=== PATIENT | female | born 1960 | race Two or more races ===

== ENCOUNTER 2020-11-03 11:58 | Outpatient (REF) | payer OTHER, SELFPAY | END 2020-11-03 11:59 | disposition home or self-care (01) | LOC: HO.LAB 11:58 | PROVIDERS: Visit Provider Internal Medicine | DX: Z20.828 Contact with and (suspected) exposure to other viral communicable diseases (principal) | CPT/HCPCS: C9803; U0003 ==

== ENCOUNTER 2020-12-22 13:42 | Outpatient (REF) | payer OTHER, SELFPAY ==
--- NOTE | 2020-12-22 | MM_ITS ---
EXAMINATION: MM SCREENING DIGITAL BREAST TOMOSYNTHESIS, BILATERAL CLINICAL INFORMATION: Screening. Asymptomatic. Prior history reduction mammoplasty 2000. The lifetime risk of breast cancer based on the Tyrer-Cuzick Model is 8%. COMPARISON: Mammography: 08/04/2019, 08/01/2018, 07/22/2017 TECHNIQUE: Digital breast tomosynthesis is performed in both the craniocaudal and mediolateral oblique views along with computer-aided detection (CAD). Synthesized 2D images are generated from the tomosynthesis. FINDINGS: The breasts are almost entirely fatty (ACR BI-RADS breast composition Category a). There are no significant masses, abnormal calcifications, or other abnormalities. There is minor scarring and scattered benign punctate round and some rim calcifications again seen similar in distribution to prior studies and consistent with the reduction mammoplasty. No significant changes. MM/MM tomosynthesis screening BI IMPRESSION: No mammographic evidence of malignancy. ASSESSMENT: BI-RADS 2: Benign RECOMMENDATION: Routine annual mammography screening. This patient's information was entered into a reminder system with a target due date for their next mammogram.
== END 2020-12-22 13:43 | disposition home or self-care (01) ==
LOC: HO.MAMMO 13:42
PROVIDERS: Visit Provider Nurse Practitioner Family
DX: Z12.31 Encounter for screening mammogram for malignant neoplasm of breast (principal)
CPT/HCPCS: 77063; 77067

== ENCOUNTER 2021-12-08 10:40 | Day surgery (SDC) | payer OTHER, SELFPAY ==
[2021-11-30 11:03] VITALS: BMI 29.2
[2021-12-08 11:13] VITALS: BP 145/85; PULSE 94; RESP 16; TEMP 36; O2SAT 95
--- NOTE | 2021-12-08 11:50 | HO.ANESPROP2 ---
[facility] Past Medical History Medical History COVID-19 vaccine series completed Elevated cholesterol GERD (gastroesophageal reflux disease) Hypothyroid Pre-diabetes Renal calculi Functional capacity: independent ambulation Patient : No Family History Family history of problems with anesthesia: No Surgical History Surgical History H/O colonoscopy History of reduction mammoplasty Hx of lithotripsy History of Problems with Anesthesia: No Social History Social History Patient Tobacco Use Status: Never used Tobacco Use of substances other than those prescribed or required for medical reasons: No Have you been hit, kicked, punched, or otherwise hurt by someone within the past year? If so, by whom?: No Are you DNR?: No Advance Directives: No Advance Directives Information Provided: Yes (informational brochure mailed) Advance Directives on File: No Recently lost weight without trying: No Eating poorly because of decreased appetite: No Nutrition Risks: No Nutritional Risk Meds Allergies Allergy/AdvReac Type Severity Reaction Status Date / Time seafood Allergy Severe Anaphylaxis Verified 11/30/21 10:52 Home Medications Medication Instructions Recorded Confirmed Last Taken Type atorvastatin 40 mg tablet 40 mg PO BEDTIME 11/30/21 11/30/21 Unknown History cholecalciferol (vitamin D3) 25 25 mcg PO DAILY 11/30/21 11/30/21 Unknown History mcg (1,000 unit) capsule (Vitamin D3) famotidine 20 mg tablet 20 mg PO BEDTIME 11/30/21 11/30/21 Unknown History fluticasone propionate 50 1 spray INTRANASAL DAILY 11/30/21 11/30/21 Unknown History mcg/actuation nasal spray,suspension levothyroxine 75 mcg tablet 75 mcg PO DAILY 11/30/21 11/30/21 Unknown History loratadine 10 mg tablet 10 mg PO DAILY 11/30/21 11/30/21 Unknown History trazodone 50 mg tablet 50 mg PO BEDTIME 11/30/21 11/30/21 Unknown History Exam Exam Date and Time: December 08, 2021 1150 Height,Weight and Vital Signs: Height 4 ft 10 in Weight 63.503 kg Last Vital Signs Temp 96.8 F 12/08/21 11:13 Pulse 94 12/08/21 11:13 Resp 16 12/08/21 11:13 BP 145/85 H 12/08/21 11:13 Pulse Ox 95 12/08/21 11:13 Airway Mallampati Class: II TM Dist: >3cm Heart: RRR Lungs: CTA Assessment and Plan Final Anesthetic Review Family History of Problems with Anesthesia: No History of Problems with Anesthesia: No ASA Class: II Final Preanesthetic Review: No Changes in Pt Med Stat, Meds/Allgs Chart Reviewed, Consent Obtained/Reviewed and Anes Risks/Benef Reviewed Patient Risk: Low Procedure Risk: Low Anesthetic Plan Anesthetic Plan: MAC: Disposition: Standard PACU
--- NOTE | 2021-12-08 12:10 | MHC.SHP ---
Pre-Procedural Eval Section A Date of Service: 12/08/21 The patient is an INPATIENT: No Changes since office visit: No Cold of Flu in the past 2 weeks, No New Medical Problems, No Changes in Medication and No Patient answered all questions The History & Physical has been completed within 30 days and I have reviewed it.: Yes Section B Chief Complaint: screening Allergies: Allergies Allergy/AdvReac Type Severity Reaction Status Date / Time seafood Allergy Severe Anaphylaxis Verified 11/30/21 10:52 Plan I have reviewed the history and physical and performed a pertinent physical examination on my patient. No changes have occurred unless specified.
[2021-12-08] MEDS: Lactated Ringers 500 ML 20 ML IVCONT (12:27)
[2021-12-08 13:08] VITALS: BP 93/55; PULSE 94; RESP 16; TEMP 36.3; O2SAT 97
[2021-12-08 13:24] VITALS: BP 104/74; PULSE 89; RESP 16; O2SAT 99
--- NOTE | 2021-12-08 13:42 | OP_ITS ---
SURGEON: Favian Flores MD INDICATIONS: Colon cancer screening. PREOPERATIVE DIAGNOSIS: POSTOPERATIVE DIAGNOSIS: PROCEDURE PERFORMED: Colonoscopy to terminal ileum. ESTIMATED BLOOD LOSS: COMPLICATIONS: ANESTHESIA: ASSISTANTS: SPECIMENS: MEDICATIONS: Monitored anesthesia care. DESCRIPTION OF PROCEDURE: History and physical performed. The risks and benefits of the procedure were explained to the patient. Informed consent was obtained. The patient was placed in left lateral decubitus position. A digital rectal exam was performed and was found to be normal. The Olympus pediatric video colonoscope was introduced into the rectum and advanced to the cecum without difficulty. The cecum was identified by transillumination, palpation, and identification of the ileocecal valve. Examination was performed. The scope was removed. She tolerated the procedure well and was taken to recovery in stable condition. FINDINGS: The terminal ileum was normal. Visualized colonic mucosa was normal. The quality of the prep was good. No polyps were identified. Retroflexed examination showed moderate-sized internal hemorrhoids. IMPRESSION: Normal colonoscopy. RECOMMENDATION: 1. Follow up as needed. 2. Repeat colonoscopy is recommended in 10 years for average risk individuals. MD ANGEL Pace/SABINE / [phone]
== END 2021-12-08 14:30 | disposition home or self-care (01) ==
PROVIDERS: Visit Provider Internal Medicine Gastroenterology
PROC: 0DJD8ZZ Inspection of Lower Intestinal Tract, Via Natural or Artificial Opening Endoscopic (ICD-10-PCS; CPT 45378; principal; 2021-12-08 12:00)
DX: Z12.11 Encounter for screening for malignant neoplasm of colon (principal); K64.8 Other hemorrhoids; K21.9 Gastro-esophageal reflux disease without esophagitis; R73.03 Prediabetes; E78.00 Pure hypercholesterolemia, unspecified; E03.9 Hypothyroidism, unspecified; E78.5 Hyperlipidemia, unspecified; E55.9 Vitamin D deficiency, unspecified; Z87.442 Personal history of urinary calculi; Z79.899 Other long term (current) drug therapy
CPT/HCPCS: 45378

== ENCOUNTER 2022-01-19 15:05 | Outpatient (REF) | payer OTHER, SELFPAY ==
--- NOTE | ~2022-01-19 | MM_ITS ---
EXAMINATION: MM SCREENING DIGITAL BREAST TOMOSYNTHESIS, BILATERAL CLINICAL INFORMATION: Screening. Asymptomatic. Remote reduction mammoplasty, 2000. The lifetime risk of breast cancer based on the Tyrer-Cuzick Model is 4%. COMPARISON: Mammography: 12/22/2020, 08/04/2019, 08/01/2018 TECHNIQUE: Digital breast tomosynthesis is performed in both the craniocaudal and mediolateral oblique views along with computer-aided detection (CAD). Synthesized 2D images are generated from the tomosynthesis. FINDINGS: The breasts are almost entirely fatty (ACR BI-RADS breast composition Category a). There are no significant masses, abnormal calcifications, or other abnormalities. There are scattered bilateral benign round and rim and dermal calcifications again seen. Background stromal and fibroglandular densities are similar to prior studies. There are no significant changes from prior studies. MM/MM tomosynthesis screening BI IMPRESSION: No mammographic evidence of malignancy. ASSESSMENT: BI-RADS 2: Benign RECOMMENDATION: Routine annual mammography screening. This patient's information was entered into a reminder system with a target due date for their next mammogram.
== END 2022-01-19 15:06 | disposition home or self-care (01) ==
LOC: HO.MAMMO 15:05
PROVIDERS: PCP General Practice; Visit Provider General Practice
DX: Z12.31 Encounter for screening mammogram for malignant neoplasm of breast (principal)
CPT/HCPCS: 77063; 77067

== ENCOUNTER 2022-06-03 17:09 | Emergency (ER) | payer OTHER, SELFPAY ==
--- NOTE | ~2022-06-03 | CT_ITS ---
EXAMINATION: NONCONTRAST HEAD CT NONCONTRAST CERVICAL SPINE CT INDICATION INFORMATION: Fall with head trauma and neck pain COMPARISON: None TECHNIQUE: Separate noncontrast CT examinations of the head and cervical spine were performed. Coronal and sagittal images were created for each examination at the technologist workstation. This CT examination was performed using dose optimization techniques as appropriate, variously including the following: *Automated exposure control *Adjustment of mA and/or kV according to patient size (this includes techniques or standardized protocols for targeted exams where dose is matched to indication/reason for exam; i.e. extremities or head) *Use of iterative reconstruction technique DLP: 993 mGy-cm FINDINGS: HEAD: No intra or extra-axial fluid collection, hemorrhage, or mass. No ventriculomegaly. No midline shift or herniation. Basal cisterns are patent. Luo-white matter differentiation is maintained. No territorial encephalomalacia. No significant volume loss. There is no abnormal attenuation within the brain parenchyma. Mild right frontal scalp swelling/small scalp hematoma. No calvarial fracture. The mastoid air cells and visualized portions of the paranasal sinuses are well aerated. Status post right maxillary antrostomy. CERVICAL SPINE: Alignment: Minimal grade 1 anterolisthesis at C4-C5 secondary to facet arthrosis. No additional subluxation. Vertebra: No acute fracture. No prevertebral soft tissue swelling. Degenerative disc disease: Minimal cervical spondylosis with minimal disc height loss at multiple levels. A few small anterior endplate disc calcifications are noted. Multilevel facet arthrosis greatest on the right at C4-C5. Other findings: No cervical lymphadenopathy. Right thyroid gland is not seen/absent. Visualized lung apices grossly clear. CT/CT cervical spine wo con IMPRESSION: 1. Mild right frontal scalp soft tissue swelling/small scalp hematoma. No calvarial fracture. 2. No intracranial hemorrhage or other acute intracranial abnormality. 3. No traumatic subluxation or acute cervical spine fracture.
[2022-06-03 17:21] VITALS: BP 137/79; PULSE 112; RESP 18; TEMP 36.1; O2SAT 94; BMI 30.9
--- NOTE | 2022-06-03 21:12 | ED_ITS ---
HPI - General Adult General Chief complaint: Head Injury Stated complaint: fall head inj Time Seen by Provider: 06/03/22 19:45 Source: patient Limitations: no limitations History of Present Illness HPI narrative: This is a 61-year-old female who went on a hike today with her grandchildren and upon this and her foot slipped out and she fell forward hitting her forehead on the left side on a rock. Patient did not lose consciousness but she did lie on the ground for about 10 minutes as she felt a little stunned. Thereafter she has had some pain to the area where she hit her head and a mild headache denies any nausea or vomiting. She denies any significant neck pain. She denies any numbness or weakness to her arms or legs. She has a little soreness to her right knee and thigh but is not concerned about that pain. She is not on any anticoagulants Related Data Home Medications Medication Instructions Recorded Confirmed atorvastatin 40 mg tablet 40 mg PO BEDTIME 11/30/21 11/30/21 cholecalciferol (vitamin D3) 25 25 mcg PO DAILY 11/30/21 11/30/21 mcg (1,000 unit) capsule (Vitamin D3) famotidine 20 mg tablet 20 mg PO BEDTIME 11/30/21 11/30/21 fluticasone propionate 50 1 spray intranasal DAILY 11/30/21 11/30/21 mcg/actuation nasal spray,suspension levothyroxine 75 mcg tablet 75 mcg PO DAILY 11/30/21 11/30/21 loratadine 10 mg tablet 10 mg PO DAILY 11/30/21 11/30/21 trazodone 50 mg tablet 50 mg PO BEDTIME 11/30/21 11/30/21 Allergies Allergy/AdvReac Type Severity Reaction Status Date / Time seafood Allergy Severe Anaphylaxis Verified 06/03/22 17:21 Review of Systems Review of Systems: as per HPI [facility] Past Medical History Medical History COVID-19 vaccine series completed Elevated cholesterol GERD (gastroesophageal reflux disease) Hypothyroid Pre-diabetes Renal calculi Surgical History H/O colonoscopy History of reduction mammoplasty Hx of lithotripsy Social History Social History Patient Tobacco Use Status: Never used Tobacco Advance Directives: No Advance Directives Information Provided: No Physical Exam ED Vital Signs: Vital Signs - 24 hr 06/03/22 17:21 06/03/22 21:20 Temperature 97.0 F 98.0 F Pulse Rate 112 H 65 Respiratory Rate 18 18 Blood Pressure 137/79 138/63 Pulse Oximetry 94 99 Oxygen Delivery Method Room Air Room Air BMI result Body Mass Index 30.9 Const General: no acute distress Orientation/consciousness: patient oriented x3 HENMT Other: contusion/ hematoma right upper forehead, no laceration Head: Yes normal to inspection General nose exam: Normal external nose present Mouth: moist mucous membranes Throat: Yes posterior oropharynx normal, Yes tonsils normal and Yes uvula midline Eyes Eyelids: Yes eyelids normal Conjunctivae: conjunctivae normal Pupils: Equal, round and reactive pupils present Neck Neck: Yes supple Resp Effort & Inspection: normal respiratory effort Auscultation: clear to auscultation bilaterally Cardio Rate: regular rate Rhythm: regular rhythm Heart sounds: S1 normal heart sound present, S2 normal heart sound present, no gallops, no murmurs and no rubs GI Inspection: No distended Palpation (GI): Soft to palpation and nontender Auscultation: normal bowel sounds Skin General skin exam: other (Warm and dry) Neuro General: patient oriented x3 and CN's II-XI intact bilaterally Cranial nerves: Yes Equal, round and reactive pupils present Extrem General: Yes no pedal edema Psych Affect: normal affect Attitude: cooperative Medical Decision Making [facility] Narrative Medical decision making narrative: patient with a fall, hitting her forehead, does have forehead hematoma, no laceration. Patient only complained of a mild headache. CT of the head was negative except for the scalp hematoma. Cervical spine CT negative, patient without neck pain. Patient is safe for outpatient treatment. Patient states she has ibuprofen she can take at home Imaging Data CT head and cervical spine without contrast: Radiologist's impression: 1. Mild right frontal scalp soft tissue swelling/small scalp hematoma. No calvarial fracture. 2. No intracranial hemorrhage or other acute intracranial abnormality. 3. No traumatic subluxation or acute cervical spine fracture. Discharge Plan Discharge Clinical Impression: Closed head injury Patient Disposition: Home, Self-Care Instructions: Head Injury (ED) Additional Instructions: Use acetaminophen or ibuprofen for pain. Return for any new or worsened symptoms. Prescriptions: No Action atorvastatin 40 mg Tablet 40 mg PO BEDTIME trazodone 50 mg Tablet 50 mg PO BEDTIME levothyroxine 75 mcg Tablet 75 mcg PO DAILY famotidine 20 mg Tablet 20 mg PO BEDTIME fluticasone propionate [Flonase] 50 mcg/actuation [place],Suspension 1 spray INTRANASAL DAILY loratadine 10 mg Tablet 10 mg PO DAILY cholecalciferol (vitamin D3) [Vitamin D3] 25 mcg (1,000 unit) Capsule 25 mcg PO DAILY Interventions: ED Discharge Assessment Last Done: 06/03/22 21:22 Discharge Date/Time: 06/03/22 21:23
[2022-06-03 21:20] VITALS: BP 138/63; PULSE 65; RESP 18; TEMP 36.7; O2SAT 99
== END 2022-06-03 21:23 | disposition home or self-care (01) ==
PROVIDERS: Emergency Provider Emergency Medicine
DX: S09.90XA Unspecified injury of head, initial encounter (principal); M54.2 Cervicalgia; R51.9 Headache, unspecified; W01.0XXA Fall on same level from slipping, tripping and stumbling without subsequent striking against object, initial encounter; Y93.9 Activity, unspecified; Y92.9 Unspecified place or not applicable; Y99.9 Unspecified external cause status
CPT/HCPCS: 70450; 72125; 99283; 99284

== ENCOUNTER 2023-01-25 14:42 | Outpatient (REF) | payer OTHER, SELFPAY ==
--- NOTE | ~2023-01-25 | MM_ITS ---
EXAMINATION: MM SCREENING DIGITAL BREAST TOMOSYNTHESIS, BILATERAL CLINICAL INFORMATION: Screening. Asymptomatic. The lifetime risk of breast cancer based on the Tyrer-Cuzick Model is 6%. COMPARISON: Mammography: 01/19/2022, 12/22/2020, 08/04/2019 TECHNIQUE: Digital breast tomosynthesis is performed in both the craniocaudal and mediolateral oblique views along with computer-aided detection (CAD). Synthesized 2D images are generated from the tomosynthesis. FINDINGS: The breasts are almost entirely fatty (ACR BI-RADS breast composition Category a). Background stromal and fibroglandular markings are normal. No developing density. No architectural abnormality. There are no significant masses, abnormal calcifications, or other abnormalities. Again, there are scattered bilateral round, rim, and dermal calcifications. The axilla are unremarkable. No significant changes. MM/MM tomosynthesis screening BI IMPRESSION: No mammographic evidence of malignancy. ASSESSMENT: BI-RADS 2: Benign RECOMMENDATION: Routine annual mammography screening. This patient's information was entered into a reminder system with a target due date for their next mammogram.
== END 2023-01-25 14:43 | disposition home or self-care (01) ==
LOC: HO.MAMMO 14:42
PROVIDERS: PCP General Practice; Visit Provider General Practice
DX: Z12.31 Encounter for screening mammogram for malignant neoplasm of breast (principal)
CPT/HCPCS: 77063; 77067

== ENCOUNTER 2023-08-02 11:59 | Outpatient (REF) | payer OTHER, SELFPAY ==
[2023-08-02 13:17] LABS: MANUAL DIFF FLAG NO
[2023-08-02 13:27] LABS: Basophils Absolute Auto 0.1 X10*3/uL (0.0-0.2); Basophils Percent Auto 0.7 % (0-2); Eosinophils Absolute Auto 0.1 X10*3/uL (0.0-0.4); Eosinophils Percent Auto 1.8 % (0-4); Hematocrit 40.1 % (37.0-47.0); Hemoglobin 13.3 g/dl (12.0-16.0); Imm Gran Abs Auto 0.02 X10*3/uL (0.00-0.03); Imm Gran Pct Auto 0.3 % (0.0-0.4); Lymphocytes Absolute Auto 3.2 X10*3/uL (1.2-4.9); Lymphocytes Percent Auto 44.6 % (20-40); Mean Corpuscular HGB Conc 33.2 g/dl (31.0-35.0); Mean Corpuscular Hemoglobin 28.7 pg (27.0-33.0); Mean Corpuscular Volume 86.6 fL (80.0-98.0); Monocytes Absolute Auto 0.4 X10*3/uL (0.1-1.2); Monocytes Percent Auto 5.9 % (2-11); Neutrophils Absolute Auto 3.3 x10*3/uL (2.0-8.3); Neutrophils Percent Auto 46.7 % (45-73); Platelet Count 267 X10*3/uL (160-400); Red Blood Count 4.63 X10*6/uL (4.20-5.50); Red Cell Distribution Width 13.4 % (11.0-16.0); White Blood Count 7.1 X10*3/uL (4.8-10.8)
[2023-08-02 14:19] LABS: Estimated Average Glucose 108 mg/dL; Hemoglobin A1c % 5.4 % (<6.0)
[2023-08-02 15:10] LABS: Alanine Aminotransferase 15 U/L (0-31); Alkaline Phosphatase 78 U/L (39-117); Anion Gap 14 (12-20); Aspartate Amino Transferase 16 U/L (5-31); Bilirubin Total 0.3 mg/dL (0.0-1.0); Blood Urea Nitrogen 16 mg/dL (9-16); Calcium 9.8 mg/dL (8.4-10.2); Carbon Dioxide 25 mmol/L (22-29); Chloride 106 mmol/L (96-108); Cholesterol 268 mg/dL (<200); Estimated Glomerular Filt Rate > 60; Glucose Random 61 mg/dL (60-115); HDL Cholesterol 61 mg/dL (>40); LDL Cholesterol Calculated 189 mg/dL (<100); Potassium 4.3 mmol/L (3.3-5.1); Sodium 141 mmol/L (135-145); TSH reflex Free T4 0.43 uIU/mL (0.32-4.0); Total Protein 7.4 g/dL (6.5-8.0); Triglycerides 90 mg/dL (<150)
== END 2023-08-02 12:00 | disposition home or self-care (01) ==
LOC: HO.HHCL 11:59
PROVIDERS: Visit Provider General Practice
DX: E03.9 Hypothyroidism, unspecified (principal); R03.0 Elevated blood-pressure reading, without diagnosis of hypertension; R73.03 Prediabetes; E78.49 Other hyperlipidemia
CPT/HCPCS: 36415; 80053; 80061; 83036; 84443; 85025

== ENCOUNTER 2024-01-29 14:25 | Outpatient (REF) | payer OTHER, SELFPAY ==
--- NOTE | ~2024-01-29 | MM_ITS ---
EXAMINATION: MM SCREENING DIGITAL BREAST TOMOSYNTHESIS, BILATERAL CLINICAL INFORMATION: Screening. Asymptomatic. The patient is status post bilateral breast reduction. COMPARISON: Mammography: This study is compared with prior exams dating back to 2019. TECHNIQUE: Digital breast tomosynthesis is performed in both the craniocaudal and mediolateral oblique views along with computer-aided detection (CAD). Synthesized 2D images are generated from the tomosynthesis. FINDINGS: The breasts are almost entirely fatty (ACR BI-RADS breast composition Category a). There are no significant masses, abnormal calcifications, or other abnormalities. Post reduction changes are present in each breast. MM/MM tomosynthesis screening BI IMPRESSION: No mammographic evidence of malignancy. ASSESSMENT: BI-RADS BI-RADS 2 - Benign Findings RECOMMENDATION: Routine annual mammography screening. 1 year F/U This examination should not preclude the clinical evaluation of a suspicious palpable abnormality. This patient's information was entered into a reminder system with a target due date for their next mammogram.
== END 2024-01-29 14:26 | disposition home or self-care (01) ==
LOC: HO.MAMMO 14:25
PROVIDERS: PCP General Practice; Visit Provider General Practice
DX: Z12.31 Encounter for screening mammogram for malignant neoplasm of breast (principal)
CPT/HCPCS: 77063; 77067

== ENCOUNTER → 2024-01-29 15:00 | Outpatient (BNV) | payer OTHER, SELFPAY | PROVIDERS: PCP General Practice; Visit Provider Radiology Diagnostic Radiology | DX: Z12.31 Encounter for screening mammogram for malignant neoplasm of breast (principal) | CPT/HCPCS: 77063; 77067 ==

== ENCOUNTER 2025-02-05 14:41 | Outpatient (REF) | payer BC, SELFPAY ==
--- OUTSIDE RECORDS SUMMARY | 2025-02-05 16:25 | XMS_ITS | Patient Health Record ---
Author Organization [facility] Address [address] [place] [address] Care Team Providers Care Binder Caser Name Role Phone Vivienne Schultz M.D. Primary Care Provider Favian Cowan Jr Unavailable Reason For Referral No Information Medications Medication SIG (Take, Route, Frequency, Duration) Notes Start Date End Date Status Atorvastatin Calcium 40 MG 1 tablet Oral ly Once a day for 30 day(s) Active Pepcid 20 MG 1 tablet at bedtime as needed Orally Once a day for 30 day(s) Active Nystatin 327344 UNIT/GM as directed Exte rnally Twice a day Active MiraLax (colon prep) 17 GM/SCOOP mixed with Gatorade or Crystal Light Orally begin at 5:00 p.m. the day before the procedure for 1 day 11/16/2021 Active D3-1000 25 MCG (1000 UT) 1 capsule Orall y Once a day Active Levothyroxine Sodium 75 MCG 1 tablet in the morning on an empty stomach Orally Once a day Active traZODone HCl 50 MG 1 tablet at bedtime as needed Orally Once a day for 30 day(s) Active Fluticasone Propionate 50 MCG/ACT 1 spray in each nostril Nasally Once a day for 30 day(s) Active Loratadine 10 MG 1 tablet Orally Once a day for 30 day(s) Active Immunizations Vaccine Route Administration Date Status Comme nts Influenza Unknown 08/02/2021 Administered Social History Tobacco Use: Social History Observation Description Date Details (start date - stop date) Never Smoker NA - NA Tobacco Use/Smoking Question Answer Notes Patient is a nonsmoker Alcohol Screen Question Answer Notes Did you have a drink containing alcohol in the p ast year? No Points 0 Interpretation Negative Problems Problem Type SNOMED Code ICD Code Onset Dates Problem Status W/U Status Risk Notes Problem 892897611 Colon cancer screening (Z12.11) Active confirmed Problem 642047837 Encounter for other preprocedural examination (Z01.818) Active confirmed Plan Of Treatment Future Test Test Name Order Date COLONOSCOPY 11/16/2021 Insurance Providers Payer Name Payer Address Payer Phone Subscriber Number Group Number Insured Name Patient Relationship to Insured Coverage Start Date Coverage End Date [employer] [address] [place] [address] [phone] [id number] JONATHON SALMERON Self - patient is the insured Medical (General) History Medical History History ICD Code prediabetic hypothyroidism hyperlipidemia vitamin D deficiency Nephrolithiasis Gastroesophageal reflux disease Surgical History Surgery Date(Month/Year) kidneystone 2013 tube in right ear 2013 [facility] 2011 Reduction mammoplasty
--- OUTSIDE RECORDS SUMMARY | 2025-02-05 16:25 | XMS_ITS | Clinical Summary ---
Author Organization [employer] Address [facility] [address] [place] [address] Care Team Providers Care Cupola Tapper Helper Name Role Phone Vivienne Schultz MD Primary Care Provider [phone] Allergies Active Allergy Reactions Criticality Noted Date Comments Clotrimazole 07/24/2021 Shellfish-Derived Products 4 Medications levothyroxine (Synthroid, Levoxyl) 75 MCG tablet Take 1 tablet (75 mcg) by mouth Once per day. 90 tablet 3 4 Active loratadine (Claritin) 10 MG tablet Take 1 tablet (10 mg) by mouth Once per day. 90 tablet 3 4 Active pravastatin (Pravachol) 40 MG tablet Take 1 tablet (40 mg) by mouth Once per day. 90 tablet 3 4 09/09/20 25 Active famotidine (Pepcid) 20 MG tablet Take 1 tablet (20 mg) by mouth in the morning. 90 tablet 3 5 Active cholecalciferol (D3-1000) 25 MCG (1000 UT) capsule Take 1 capsule (25 mcg) by mouth Once per day. 90 capsule 3 5 Active fluticasone (Flonase) 50 MCG/ACT nasal spray Administer 1 spray into each nostril Once per day. Shake gently. Before first use, prime pump. After use, clean tip and replace cap. 16 mL 3 5 Active Active Problems Problem Noted Date Diagnosed Date Bloody nose 09/09/2024 History of frequent ear infections 09/09/2024 Encounter for other preprocedural examination Colon cancer screening 08/01/2023 Sciatica of right side 07/02/2023 Assessment & Plan (08/02/2023 12:27 PM EDT): Continue home exercises, if not better in 4 weeks, she can do PT Assessment & Plan (07/02/2023 12:35 PM EDT): Use ibuprofen 600mg twice daily for 1-2 weeks as opposed to prn only use heat to affected area and discussed about stretching exercises and information given to pt Will refer to PT FU with PCP if symptoms do not improve Elevated blood pressure read ing in office without diagnosis of hypertension 07/02/2023 Assessment & Plan (08/02/2023 12:27 PM EDT): Elevated here, at home 130s/80s Assessment & Plan (07/02/2023 12:35 PM EDT): Could be related to pain Pt will check BP at home, she said she has a BP machine FU with PCP in 4 weeks Counseled re low salt diet/increase moderate physical activity. Check home BP BIW and prn CP/BRISENO/GREGORY Non smoking patient. Normal colonoscopy 12/13/2021 Vitamin D deficiency 11/07/2016 Prediabetes 11/07/2016 Hypothyroidism 02/09/2016 Hyperlipidemia 02/09/2016 Resolved Problems Problem Noted Date Diagnosed Date Resolved Date Streptococcal sore throat 03/03/2018 Encounters Date Type Department Care Team Description 01/04/2025 4:00 PM EST Office Visit [facility] [address] [place] [phone] Vivienne Schultz MD Hypothyroidism, unspecified type (Primary Dx); Dietary counseling; Exercise counseling; Overweight; Other hyperlipidemia; Prediabetes; Encounter for immunization 01/04/2025 Travel 12/23/2024 Patient Outreach [facility] [address] [place] [phone] Vivienne Schultz MD Pre-visit Planning ((Unable to reach for PVP screening, LVM)) 11/30/2024 2:20 PM EST Office Visit [facility] [address] [place] [phone] Name, MD Tc COVID-19 (Primary Dx); Sore throat; Other cough 11/29/2024 Refill [facility] [address] [place], [place] [phone] Vivienne Schultz MD 11/17/2024 Telephone [facility] [address] [place] [address] Vivienne Schultz MD Nurse Triage from Last 3 Months Immunizations Name Administration Dates Next Due Hep A, Adult 05/05/2015,07/01/2014 Hep B, adult 08/22/2015, 5,08/05/2014,2013 Influenza injectable quadriv alent IIV4 with preservative 08/21/2017,10/01/2016,08/22/2015 Influenza injectable quadriv alent preservative free 02/05/2019 Influenza, IIV3, injectable 08/02/2021, 1 Influenza, Split (incl. dennis fied surface antigen) 03/03/2014 Influenza, seasonal, injecta ble, preservative free 01/04/2025 Pneumococcal Conjugate PCV 20 01/04/2025 TD (adult), 2 Lf tetanus tox oid, preservative free, adsorbed 03/14/2005 Tdap 01/04/2025,03/03/2014 Varicella 07/01/2014 Zoster, Recombinant 05/01/2022 Social History Tobacco Use Types Packs/Day Years Used Date Smoking Tobacco: Never Smokeless Tobacco: Never Tobacco Cessation:Counseling Given: Not Answered Alcohol Use Standard Drinks/Week Comments Never 0 (1 standard drink = 0.6 oz pur e alcohol) Housing Stability Answer Date Recorded What is your housing situation today? I have bryceadela patiño 09/30/[address] you li ve. Do you have problems with any of the following? None of the above 09/30/2023 Food Insecurity Answer Date Recorded Within the past 12 months, y ou worried that your food would run out before you got money to buy more: Never True 09/30/2023 Within the past 12 months,th e food you bought just didn't last and you didn't have enough money to get more: Never True Transportation Answer Date Recorded In the past 12 months, has l ack of transportation kept you from medical appts, meetings, work or from getting things needed for daily living? No 09/30/2023 Utilities Answer Date Recorded In the past 12 months, has t he electric, gas, oil or water company threatened to shut off services in your home? No 09/30/2023 Depression Answer Date Recorded Patient Health Questionnaire-2 Score 0 07/02/2023 Comments No Sex and Gender Information Value Date Recorded Sex Assigned at Female 10/01/2022 10:18 AM EDT Legal Sex Female 10:18 AM EDT Gender Identity Female 10/01/2022 10:18 AM EDT Sexual Orientation Straight 10/01/2022 10 :18 AM EDT Last Filed Vital Signs Vital Sign Reading Time Taken Comments Blood Pressure 122/78 01/04/2025 3:41 PM EST Pulse 80 01/04/2025 3:41 PM EST Temperature 36.7 ??C (98.1 ??F) 01/04/2025 3:41 PM ES T Respiratory Rate 21 01/04/2025 3:41 PM EST Oxygen Saturation 96% 01/04/2025 3:41 PM EST Inhaled Oxygen Concentration - - Weight 63.6 kg (140 lb 2 oz) 01/04/2025 3:41 PM EST Height 142.2 cm (4' 8 ) 01/04/2025 3:41 PM EST Body Mass Index 31.42 01/04/2025 3:41 PM EST Plan of Treatment Health Maintenance Due Date Last Done Comments CT Colonography 1960 Colonoscopy 1960 Colorectal Cancer Screening 1960 FIT DNA/Cologuard 1960 FIT 1960 FOBT 1960 Sigmoidoscopy 1960 Zoster Vaccines (2 of 2) 06/26/2022 05/01/2022 Depression Screening 07/02/2024 07/02/2023, 07/02/20 23 SDOH Screening 07/02/2024 07/02/2023 Pap Smear 07/18/2024 07/18/2021 COVID-19 Vaccine ( season) 2024 08/07/2022, 05/15/2021, 04/17/2021 Mammogram 01/29/2025 01/29/2024, 01/03, 01/25/2023, Additional history exists Alcohol/Substance Use Screening 01/04/2026 01/04/2025 Diabetes: Hemoglobin A1C 01/04/2026 025, 08/02/2023, 04/25/2021 Tobacco Screening 01/04/2026 01/04/2025 Cervical Cancer Screening 07/18/2026 HPV/Cotest 07/18/2026 07/18/2021, 11/07/2016 DTaP/Tdap/Td Vaccines (3 - Td or Tdap) 01/04/2035 01/04/2025, 03/03/2014, 03/14/2005 RSV Patients and Patients Aged 60 years or older (1 - 1-dose 75+ series) 2035 Hepatitis A Vaccines Aged Out 05/05/2015, 07/01/20 14 No longer eligible based on patient's age to complete this topic Hepatitis B Vaccines Completed 08/22/2015, 01/06/2015, 08/05/2014, Additional history exists HIV Screening Completed 04/25/2021 Hepatitis C Screening Completed 04/25/2021 Influenza Vaccine Completed 01/04/2025, , 02/05/2019, Additional history exists Pneumococcal Vaccine: 50+ Years Completed 01/04/2025 HIB Vaccines Aged Out No longer eligi ble based on patient's age to complete this topic HPV Vaccines Aged Out No longer eligi ble based on patient's age to complete this topic IPV Vaccines Aged Out No longer eligi ble based on patient's age to complete this topic Meningococcal Vaccine Aged Out No romel scott eligible based on patient's age to complete this topic RSV under 20 months Aged Out No longe r eligible based on patient's age to complete this topic Rotavirus Vaccines Aged Out No longer eligible based on patient's age to complete this topic Procedures Procedure Name Priority Date/Time Associated Diagnosis Comments POCT GLYCATED HEMOGLOBIN, TOTAL Routine 01/04/2025 4:00 PM EST Prediabetes POCT GLUCOSE Routine 01/04/2025 3:54 PM EST Prediabetes POC PADILLA ID NOW STREP A Routine 11/30/2024 2:28 PM EST Sore throat POCT INFLUENZA A (ID NOW RAPID MOLECULAR) Routine 11/30/2024 2:28 PM EST Other cough POCT INFLUENZA B (ID NOW RAPID MOLECULAR) Routine 11/30/2024 2:28 PM EST Other cough POCT RAPID COVID ANTIGEN Routine 11/30/2024 2:28 PM EST Other cough BI MAMMOGRAM SCREENING TOMOSYNTHESIS BILATERAL Routine 01/29/2024 2:50 PM EST HPV MRNA E6/E7 REFLEX TO HPV 16, 18/45 Routine 07/18/2021 8:41 PM EDT THINPREP PAP Routine 07/18/2021 8:41 PM EDT ZZZ HISTORICAL HEPATITIS C AB W/REFL TO HCV RNA, QN, PCR Routine 04/25/2021 2:28 PM EDT HIV 1/2 ANTIGEN/ANTIBODY, FOURTH GENERATION W/RFL Routine 04/25/2021 2:28 PM EDT from Last 3 Months or Most Recently Relevant to Health Maintenance Results * POCT HGB A1C (01/04/2025 4:00 PM EST) Hemoglobin A1C 5.7 4.0 - 6.0 % QC Media Lot # [id number] Lot# Expiration Date Blood 01/04/2025 4:00 PM EST Vivienne Schultz MD POINT OF CARE TEST ENTER/EDIT ORDERABLES Edited Result - Final * POCT Glucose (01/04/2025 3:54 PM EST) Glucose Blood, POC 91 60 - 200 mg/dL QC Media Lot # [id number] Lot# Expiration Date ,025 Blood Capillary blood specimen / Unknown 01/04/2025 3:54 PM EST us Vivienne Schultz MD POINT OF CARE TEST ENTER/EDIT ORDERABLES Final Result * POCT Rapid Influenza B PADILLA ID NOW (11/30/2024 2:28 PM EST) [facility] Influenza B Negative Negative, Indeterminate [facility] Swab 11/30/2024 2:28 PM EST us Tc Parson MD POINT OF CARE TEST ENTER/EDIT OR DERABLES Final Result Performing Organization Address [facility] Co de Phone Number [facility] [address] [place] [phone] * POCT Rapid Influenza A PADILLA ID NOW (11/30/2024 2:28 PM EST) [facility] Influenza A Negative Negative, Indeterminate [facility] Swab 11/30/2024 2:28 PM EST Result [facility] us Tc Parson MD POINT OF CARE TEST ENTER/EDIT OR DERABLES Final Result Performing Organization Address [facility] Co de Phone Number [facility] [address] [place] [phone] * POCT Rapid Strep A PADILLA ID NOW (11/30/2024 2:28 PM EST) [facility] Rapid Strep A Screen Negative Negative, None Detected Swab 11/30/2024 2:28 PM EST us Tc Parson MD POINT OF CARE TEST ENTER/EDIT OR DERABLES Final Result * (ABNORMAL) POCT Rapid Covid-19 BinaxNOW (11/30/2024 2:28 PM EST) [facility] Rapid COVID Ag Positive [facility] Swab 11/30/2024 2:28 PM EST us Tc Name MD POINT OF CARE TEST ENTER/EDIT OR DERABLES Final Result [facility] [address] [place] [address] [phone] * BI Mammogram Screening Tomosynthesis Bilateral (01/29/2024 2:50 PM EST) Anatomical Region Laterality Modality Breast Bilateral Mammography 01/29/2024 2:50 PM EST Narrative 02/16/2024 5:20 PM EDT ? [facility] ? [address] ?[place] [address] ? Mammography Report ? Signed ? Patient: Lexis Kim ?MR#: [id number] ?? [id number] ? : 1960 ?Acct:[id number] ? Age/Sex: 63 / F ?ADM Date: 01/29/24 ? Loc: HO.MAMMO ? Attending Dr: Vivienne Schultz MD ? Ordering Physician: Vivienne Schultz ?Results: 2Benign F ?? indings ? Date of Service: 01/29/24 ?Follow Up: 1 Year From Orig ?? inal Mammogram ? Procedure(s): MM tomosynthesis screening BI ?? Accession Number(s): [id number] ? cc: Shaneka Schultzia ? EXAMINATION: ?? MM SCREENING DIGITAL BREAST TOMOSYNTHESIS, BILATERAL ? CLINICAL INFORMATION: ? Screening. Asymptomatic. ? The patient is status post bilateral breast reduction. ? COMPARISON: ?? Mammography: This study is compared with prior exams dating back to ?? 2019. ? TECHNIQUE: ?? Digital breast tomosynthesis is performed in both the craniocaudal and ?? mediolateral oblique views along with computer-aided detection (CAD). ?? Synthesized 2D images are generated from the tomosynthesis. ? FINDINGS: ?? The breasts are almost entirely fatty (ACR BI-RADS breast composition ?? Category a). ? There are no significant masses, abnormal calcifications, or other ?? abnormalities. ?? Post reduction changes are present in each breast. ? MM/MM tomosynthesis screening BI ?? IMPRESSION: ?? No mammographic evidence of malignancy. ? ASSESSMENT: ? BI-RADS BI-RADS 2 - Benign Findings ? RECOMMENDATION: ?? Routine annual mammography screening. ? 1 year F/U ? This examination should not preclude the clinical evaluation of a ?? suspicious palpable abnormality. ? This patient's information was entered into a reminder system with a ?? target due date for their next mammogram. ? Dictated By: ?Usha Manning MD ? Signed By: ?<Electronically signed by Usha Manning MD in OV> ? 02/16/24 1716 ? DD/ 1450 ? TD/TT: ? Reliability Manager: ? Procedure Note Barry, Sin - 02/16/2024 [facility] [address] [place] [address] Mammography Report Signed Patient: Miguelina Kim#: [id number] : 1960Acct:[id number] Age/Sex: 63 / FADM Date: 01/29/24 Loc: ROBERT Attending Dr: Vivienne Schultz MD Ordering Physician: Osvaldo Schultzults: 2Benign F indjames Date of Service: 01/29/24Follow Up: 1 Year From Orig inal Mammogram Procedure(s): MM tomosynthesis screening BI Accession Number(s): [id number] cc: Vivienne Schultz EXAMINATION: MM SCREENING DIGITAL BREAST TOMOSYNTHESIS, BILATERAL CLINICAL INFORMATION: Screening. Asymptomatic. The patient is status post bilateral breast reduction. COMPARISON: Mammography: This study is compared with prior exams dating back to 2019. TECHNIQUE: Digital breast tomosynthesis is performed in both the craniocaudal and mediolateral oblique views along with computer-aided detection (CAD). Synthesized 2D images are generated from the tomosynthesis. FINDINGS: The breasts are almost entirely fatty (ACR BI-RADS breast composition Category a). There are no significant masses, abnormal calcifications, or other abnormalities. Post reduction changes are present in each breast. MM/MM tomosynthesis screening BI IMPRESSION: No mammographic evidence of malignancy. ASSESSMENT: BI-RADS BI-RADS 2 - Benign Findings RECOMMENDATION: Routine annual mammography screening. 1 year F/U This examination should not preclude the clinical evaluation of a suspicious palpable abnormality. This patient's information was entered into a reminder system with a target due date for their next mammogram. Dictated By: Usha Manning MD Signed By: <Electronically signed by Usha Manning MD in OV> 02/16/24 1716 DD/ 1450 TD/TT: Reliability Manager: Vivienne Schultz MD IM BI PROCEDURES Edited Resul t - Final * THINPREP PAP (07/18/2021 8:41 PM EDT) Clinical Information: None given [facility] COMMENT SEE COMMENT [facility] Comment: EXPLANATORY NOTE: ? The Pap is a screening test for cervical cancer. It is ?? not a diagnostic test and is subject to false negative ?? and false positive results. It is most reliable when a ?? satisfactory sample, regularly obtained, is submitted ?? with relevant clinical findings and history, and when ?? the Pap result is evaluated along with historic and ?? current clinical information. ?? Metal Fabricating Supervisor : SEE COMMENT [facility] Comment: RMM, CT(ASCP) CT screening location: [address] ??[address] Interpretation/R esult: Negative for intraepithelial lesion or malignancy. [facility] LMP: NONE [facility]IVEN [facility] Prev. BX: NONE [facility]IVEN [facility] Prev. PAP: NONE [facility]IVEN [facility] SOURCE: None given [facility] Statement Of Adequacy: SEE COMMENT [facility] Comment: Satisfactory for evaluation. Endocervical/transformation zone component present. 07/18/2021 8:41 PM EDT Vivienne Schultz MD LAB PATHOLOGY ORDERABLES Final Result Performing Organization Address [facility] Co de Phone Number [facility] [address] [place] [address], * HPV mRNA E6/E7 REFLEX TO HPV 16, 18/45 (07/18/2021 8:41 PM EDT) HPV nRNA E6/E7 Not Detected Not Detected [facility] Comment: Methodology: Field Service Engineer-Mediated Amplification This assay detects E6/E7 viral messenger RNA (mRNA) from 14 high-risk HPV types (16,18,31,33,35,39,45,51,52,56,58,59,66,68). ? The analytical performance characteristics of this assay have been determined by DNA SEQ. The modifications have not been cleared or approved by the FDA. This assay has been validated pursuant to the CLIA regulations and is used for clinical purposes. ?? For additional information, please refer to http://education.Dizkon/faq/QKI079w8 (This link if provided for information/ educational purposes only.) NO COLLECTION DATE RECEIVED. WE HAVE USED THE DATE THE SPECIMEN WAS RECEIVED BY THIS LABORATORY THE COLLECTION DATE. IF THIS IS INCORRECT, PLEASE CONTACT CLIENT SERVICES. PHONE NUMBER: ?? 07/18/2021 8:41 PM EDT Vivienne Schultz MD LAB CYTOLOGY ORDERABLES Final Result Performing Organization Address [facility] Co de Phone Number [facility] [address] [place] [address], * HEPATITIS C AB W/REFL TO HCV RNA, QN, PCR (04/25/2021 2:28 PM EDT) HEPATITIS C ANTIBODY NON-REACT JERROD NON-REACT JERROD [facility] INDEX 0.01 <1.00 [facility] Comment: ?? HCV antibody was non-reactive. There is no laboratory ?? evidence of HCV infection. ?? In most cases, no further action is required. However, if recent HCV exposure is suspected, a test for HCV RNA (test code 76976) is suggested. ?? For additional information please refer to http://Live Gamer.Dizkon/faq/XNN90y3 (This link is being provided for informational/ educational purposes only.) ?? 04/25/2021 2:28 PM EDT Ariadne Lopez MD HISTORICAL/NON ORDERA BLE LABS Final Result Performing Organization Address City/State/[facility] Co de Phone Number [facility] [address] * HIV 1/2 ANTIGEN/ANTIBODY,FOURTH GENERATION W/RFL (04/25/2021 2:28 PM EDT) HIV-1/2 ANTIGEN AND ANTIBODIES, 4TH GENERATION W/ REFLEX NON-REACT JERROD NON-REACT JERROD [facility] Comment: HIV-1 antigen and HIV-1/HIV-2 antibodies were not detected. There is no laboratory evidence of HIV infection. ?? PLEASE NOTE: This information has been disclosed to you from records whose confidentiality may be protected by state law. ??If your state requires such protection, then the state law prohibits you from making any further disclosure of the information without the specific written consent of the person to whom it pertains, or as otherwise permitted by law. A general authorization for the release of medical or other information is NOT sufficient for this purpose. ? For additional information please refer to http://Live Gamer.Dizkon/faq/TEO919 (This link is being provided for informational/ educational purposes only.) ? The performance of this assay has not been clinically validated in patients less than 2 years old. ?? 04/25/2021 2:28 PM EDT us Ariadne Lopez MD LAB BLOOD ORDERABLES Final Result [facility] [address] from Last 3 Months or Most Recently Relevant to Health Maintenance Insurance HSN PARTIAL BCBS PPO Care Teams Cupola Tapper Helper Relationship Specialty Start Date End Date Vivienne Schultz MD [address] [place], [place] PCP - General Family Medicine 01/17/21
--- OUTSIDE RECORDS SUMMARY | 2025-02-05 16:25 | XMS_ITS | Encounter Summary ---
Author Organization [employer] Address [address] [place] [address] Care Team Providers Care Case Briefer Name Role Phone Vivienne Schultz MD Primary Care Provider [phone] Encounter Details Date Type Department Care Team (Late st Contact Info) Description 05/21/2023 Orders Only [facility] [address] [place] [address] Bonnie Grande LPN Social History Tobacco Use Types Packs/Day Years Used Date Smoking Tobacco: Never Assessed Comments Unknown Sex and Gender Information Value Date Recorded Sex Assigned at Female 10/01/2022 10:18 AM EDT Legal Sex Female 10:18 AM EDT Gender Identity Female 10/01/2022 10:18 AM EDT Sexual Orientation Straight 10/01/2022 10 :18 AM EDT documented as of this encounter Plan of Treatment Not on file documented as of this encounter Visit Diagnoses Not on filedocumented in this encounter Care Teams Case Briefer Relationship Specialty Start Date End Date Vivienne Schultz MD [address] [place] [phone] PCP - General Family Medicine 01/17/21 documented as of this encounter
--- OUTSIDE RECORDS SUMMARY | 2025-02-05 16:25 | XMS_ITS | Encounter Summary ---
Author Organization [employer] Address [address] [place] [address] Care Team Providers Care Yarn Sizer Name Role Phone Vivienne Schultz MD Primary Care Provider [phone] Encounter Details Date Type Department Care Team (Late st Contact Info) Description 03/12/2023 Orders Only [facility] [address] [place] [address] Bonnie Grande LPN Social History Tobacco Use [...] on filedocumented in this encounter Care Teams Yarn Sizer Relationship Specialty Start Date End Date Vivienne Schultz MD [address] [place] [phone] PCP - General Family Medicine 01/17/21 documented as of this encounter
--- OUTSIDE RECORDS SUMMARY | 2025-02-05 16:25 | XMS_ITS | Encounter Summary ---
Author Organization [employer] Address [address] [place] [address] Care Team Providers Care Customs Verifier Name Role Phone Vivienne Schultz MD Primary Care Provider [phone] Reason for Visit * Reason Comments Med Refill Encounter Details Date Type Department Care Team ([facility] st Contact Info) Description 11/29/[address] [facility] [address] [place], [place] [phone] Vivienne Schultz MD [address] [place], [place] [phone] Social History Tobacco Use Types Packs/Day Years Used Date Smoking Tobacco: Never Smokeless Tobacco: Never Alcohol Use Standard Drinks/Week Comments Never 0 [...] Patient Health Questionnaire-2 Score 0 07/02/2023 Comments Unknown Sex and Gender Information Value [...] on filedocumented in this encounter Care Teams Customs Verifier Relationship Specialty Start Date End Date Vivienne Schultz MD [address] [place] [address] PCP - General Family Medicine 01/17/21 documented as of this encounter
--- OUTSIDE RECORDS SUMMARY | 2025-02-05 16:25 | XMS_ITS | Encounter Summary ---
Author Organization [employer] Address [address] [facility] [address] [place] [address] Care Team Providers Care Inspector Plug Seam Name Role Phone Vivienne Schultz MD Primary Care Provider [phone] Encounter Details Date Type Department Care Team (Late st Contact Info) Description 08/14/2023 Orders Only [facility] [address] [place], [place] [phone] Vivienne Schultz MD [address] [place], [place] [phone] Social History Tobacco Use Types Packs/Day Years Used Date Smoking Tobacco: Never Smokeless Tobacco: Never Alcohol Use Standard Drinks/Week Comments Never 0 (1 standard drink = 0.6 oz pur e alcohol) Depression Answer Date Recorded Patient Health Questionnaire-2 [...] on filedocumented in this encounter Care Teams Inspector Plug Seam Relationship Specialty Start Date End Date Vivienne Schultz MD [address] [place] [phone] PCP - General Family Medicine 01/17/21 documented as of this encounter
== END 2025-02-05 14:42 | disposition home or self-care (01) ==
LOC: HO.MAMMO 14:41
PROVIDERS: PCP General Practice; Visit Provider General Practice
DX: Z12.31 Encounter for screening mammogram for malignant neoplasm of breast (principal)
CPT/HCPCS: 77063; 77067

== ENCOUNTER → 2025-02-05 15:00 | Outpatient (BNV) | payer BC, SELFPAY | PROVIDERS: PCP General Practice; Visit Provider Internal Medicine | DX: Z12.31 Encounter for screening mammogram for malignant neoplasm of breast (principal) | CPT/HCPCS: 77063; 77067 ==

== ENCOUNTER 2025-03-03 08:00 | Outpatient (REF) | payer BC, SELFPAY ==
--- OUTSIDE RECORDS SUMMARY | 2025-03-03 08:05 | XMS_ITS | Encounter Summary ---
Author Organization [employer] Address [address] [facility] [address] 7[address] [place] [address] Care Team Providers Care Earth Mover Name Role Phone Vivienne Schultz MD Primary Care Provider [phone] Encounter Details Date Type Department Care Team (Late st Contact Info) Description 03/12/2023 Orders Only [facility] MED & PEDS [address] [place] [address] Bonnie Grande LPN Social History Tobacco Use [...] on filedocumented in this encounter Care Teams Earth Mover Relationship Specialty Start Date End Date Vivienne Schultz MD [address] [place] [id number] PCP - General Family Medicine 01/17/21 documented as of this encounter
--- OUTSIDE RECORDS SUMMARY | 2025-03-03 08:05 | XMS_ITS | Encounter Summary ---
Author Organization [employer] Address 75 [facility] 7t [place] [address] Care Team Providers Care Liquor Bridge Operator Name Role Phone Vivienne Schultz MD Primary Care Provider [phone] Encounter Details Date Type Department Care Team (Late st Contact Info) Description 08/14/2023 Orders Only [facility] MEDICINE [address] [place], [place] [phone] Vivienne Schultz MD [address] [place], [place] [phone] Social History Tobacco Use Types Packs/Day Years [...] on filedocumented in this encounter Care Teams Liquor Bridge Operator Relationship Specialty Start Date End Date Vivienne Schultz MD [address] [place] [address] [phone] PCP - General Family Medicine 01/17/21 documented as of this encounter
--- OUTSIDE RECORDS SUMMARY | 2025-03-03 08:05 | XMS_ITS | Clinical Summary ---
Author Organization [employer] Address [address] [facility] [facility] [address] [facility] [address] 7[address] [place] [address] Care Team Providers Care Railroad Firer Name Role Phone Vivienne Schultz MD Primary Care Provider [phone] Allergies Active Allergy Reactions Criticality Noted Date [...] Encounters Date Type Department Care Team Description 02/05/2025 Orders Only [facility] [address] [place] [address] Vivienne Schultz MD 01/04/2025 4:00 PM EST Office Visit [facility] [address] [place] [address] Vivienne Schultz MD Hypothyroidism, unspecified type (Primary Dx); Dietary counseling; Exercise counseling; Overweight; Other hyperlipidemia; Prediabetes; Encounter for immunization 01/04/2025 Travel 12/23/2024 Patient Outreach [facility] [address] [place] [address] Vivienne Schultz MD Pre-visit Planning ((Unable to reach for PVP screening, LVM)) from Last 3 Months Immunizations Name Administration [...] is your housing situation today? I have bryce patiño 09/30/[address] you [...] Vaccine ( season) 2024 08/07/2022, 05/15/2021, 04/17/2021 Alcohol/Substance Use Screening 01/04/2026 01/04/2025 Diabetes: Hemoglobin A1C 01/04/2026 025, 08/02/2023, 04/25/2021 Tobacco Screening 01/04/2026 01/04/2025 Mammogram 02/05/2026 02/05/2025, 01/03, 01/25/2023, Additional history exists Cervical Cancer Screening 07/18/2026 HPV/Cotest 07/18/2026 07/18/2021, [...] Procedure Name Priority Date/Time Associated Diagnosis Comments BI MAMMOGRAM SCREENING TOMOSYNTHESIS BILATERAL Routine 02/05/2025 2:50 PM EST POCT GLYCATED HEMOGLOBIN, TOTAL Routine 01/04/2025 4:00 PM EST Prediabetes POCT GLUCOSE Routine 01/04/2025 3:54 PM EST Prediabetes HPV MRNA E6/E7 REFLEX TO HPV 16, 18/45 Routine 07/18/2021 8:41 PM EDT THINPREP PAP Routine 07/18/2021 8:41 PM EDT ZZZ HISTORICAL HEPATITIS C AB W/REFL TO HCV RNA, QN, PCR Routine 04/25/2021 2:28 PM EDT HIV 1/2 ANTIGEN/ANTIBODY, FOURTH GENERATION W/RFL Routine 04/25/2021 2:28 PM EDT from Last 3 Months or Most Recently Relevant to Health Maintenance Results * BI Mammogram Screening Tomosynthesis Bilateral (02/05/2025 2:50 PM EST) Anatomical Region Laterality Modality Breast Bilateral Mammography 02/05/2025 2:50 PM EST Narrative 02/14/2025 7:58 PM EDT ? [facility] [place] ? [address] ?[place] Ru[place] [address] ? Mammography Report ? Signed ? Patient: Lexis Kim ?MR#: [id number] ?? 214 ? : 1960 ?Acct:[id number] ? Age/Sex: 64 / F ?ADM Date: 02/05/25 ? Loc: HO.MAMMO ? Attending Dr: Vivienne Schultz MD ? Ordering Physician: Vivienne Schultz ?Results: 2Benign F ?? indings ? Date of Service: 02/05/25 ?Follow Up: 1 Year From Orig ?? inal Mammogram ? Procedure(s): MM tomosynthesis screening BI ?? Accession Number(s): [id number] ? cc: Vivienne Schultz ? EXAMINATION: ?? MM SCREENING DIGITAL BREAST TOMOSYNTHESIS, BILATERAL ? CLINICAL INFORMATION: ? Screening. Asymptomatic. ? COMPARISON: ?? Mammography: Comparison is made with available priors ? TECHNIQUE: ?? Digital breast mammography with tomosynthesis is performed in both the ?? craniocaudal and mediolateral oblique views along with computer-aided ?? detection (CAD). ? FINDINGS: ?? The breasts are almost entirely fatty (ACR BI-RADS breast composition ?? Category a). ?? Bilateral reduction mammoplasty. ?? There are no significant masses, abnormal calcifications, or other ?? abnormalities. ? MM/MM tomosynthesis screening BI ?? IMPRESSION: [...] due date for their next mammogram. ? Electronically signed by: ??Guera Juares DO ??02/14/2025 07:55 PM EDT ? Dictated By: ?Guera Juares DO ? Signed By: ?<Electronically signed by Guera Juares, DO in OV> ? 02/14/251954 ? DD/ 1450 ? TD/TT: 02/05/25 1500 ? Wilderness Guide: ? Procedure Note Barry, Image - 02/14/2025 [facility] [address] [place] [address] Dr. Ruiz, [place]I [address] Mammography Report Signed Patient: Miguelina Kim#: [id number] : 1960Acct:[id number] Age/Sex: 64 / FADM Date: 02/05/25 Loc: ROBERT Attending Dr: Vivienne Schultz MD Ordering Physician: Osvaldo Schultzults: 2Benign F indings Date of Service: 02/05/25Follow Up: 1 Year From Orig inal Mammogram Procedure(s): MM tomosynthesis screening BI Accession Number(s): [id number] cc: Vivienne Schultz EXAMINATION: MM SCREENING DIGITAL BREAST TOMOSYNTHESIS, BILATERAL CLINICAL INFORMATION: Screening. Asymptomatic. COMPARISON: Mammography: Comparison is made with available priors TECHNIQUE: Digital breast mammography with tomosynthesis is performed in both the craniocaudal and mediolateral oblique views along with computer-aided detection (CAD). FINDINGS: The breasts are almost entirely fatty (ACR BI-RADS breast composition Category a). Bilateral reduction mammoplasty. There are no significant masses, abnormal calcifications, or other abnormalities. MM/MM tomosynthesis screening BI IMPRESSION: No mammographic evidence of malignancy. ASSESSMENT: BI-RADS BI-RADS 2 - Benign Findings RECOMMENDATION: Routine annual mammography screening. 1 year F/U This examination should not preclude the clinical evaluation of a suspicious palpable abnormality. This patient's information was entered into a reminder system with a target due date for their next mammogram. Electronically signed by: Guera Juares DO 02/14/2025 07:55 PM EDT Dictated By: Guera Juares DO Signed By: <Electronically signed by Guera Juares DO in OV> 02/14/25 1955 DD/ 1450 TD/TT: 02/05/25 1500 Wilderness Guide: Vivienne Schultz MD IMG BI PROCEDURES Final Result * POCT HGB A1C (01/04/2025 4:00 PM EST) Hemoglobin A1C 5.7 4.0 - 6.0 % QC Media Lot # [id number] Lot# Expiration Date ,026 Blood 01/04/2025 4:00 PM EST Viveinne Schultz MD POINT OF CARE TEST ENTER/EDIT ORDERABLES Edited Result - Final * POCT Glucose (01/04/2025 3:54 PM EST) Glucose Blood, POC 91 60 - 200 mg/dL QC Media Lot # [id number] Lot# Expiration Date [id number] Blood Capillary blood specimen / Unknown 01/04/2025 3:54 PM EST Vivienne Schultz MD POINT OF CARE TEST ENTER/EDIT ORDERABLES Final Result * THINPREP PAP (07/18/2021 8:41 PM EDT) Clinical Information: None given [facility] COMMENT SEE COMMENT [facility] [...] historic and ?? current clinical information. ?? Amphibian Crewmember : SEE COMMENT [facility] Comment: [facility], CT(ASCP) CT screening location: [address] ??[address] Interpretation/R esult: Negative for intraepithelial lesion or malignancy. [facility] LMP: NONE GIVEN [facility] Prev. BX: NONE GIVEN [facility] Prev. PAP: NONE GIVEN [facility] SOURCE: None given [facility] Statement Of Adequacy: SEE COMMENT [facility] Comment: Satisfactory for evaluation. Endocervical/transformation zone component present. 07/18/2021 8:41 PM EDT Vivienne Schultz MD LAB PATHOLOGY ORDERABLES Final Result [facility] [address] * HPV mRNA E6/E7 REFLEX TO HPV 16, 18/45 (07/18/2021 8:41 PM EDT) HPV nRNA E6/E7 Not Detected Not Detected [facility] Comment: Methodology: Manager Mission-Mediated Amplification This assay detects E6/E7 viral messenger RNA (mRNA) from 14 high-risk HPV types (16,18,31,33,35,39,45,51,52,56,58,59,66,68). ? The analytical performance characteristics of this assay have been determined by [facility]. The modifications have not been cleared or approved by the FDA. This assay has been validated pursuant to the CLIA regulations and is used for clinical purposes. ?? For additional information, please refer to http://LocalCustomer.GeaCom/faq/TAC182o6 (This link if provided for information/ educational purposes only.) NO COLLECTION DATE RECEIVED. WE HAVE USED THE DATE THE SPECIMEN WAS RECEIVED BY THIS LABORATORY THE COLLECTION DATE. IF THIS IS INCORRECT, PLEASE CONTACT CLIENT SERVICES. PHONE NUMBER: ?? 07/18/2021 8:41 PM EDT Vivienne Schultz MD LAB CYTOLOGY ORDERABLES Final Result Performing Organization Address [facility] Number [facility] [address] [place] [address], * HEPATITIS C AB W/REFL TO HCV RNA, QN, PCR (04/25/2021 2:28 PM EDT) HEPATITIS C ANTIBODY NON-REACT JERROD NON-REACT JERROD [facility] INDEX 0.01 <1.00 [facility] Comment: ?? HCV antibody was non-reactive. There is no laboratory ?? evidence of HCV infection. ?? In most cases, no further action is required. However, if recent HCV exposure is suspected, a test for HCV RNA (test code 14642) is suggested. ?? For additional information please refer to http://education.GeaCom/faq/UZG45z6 (This link is being provided for informational/ educational purposes only.) ?? 04/25/2021 2:28 PM EDT us Ariadne Lopez MD HISTORICAL/NON ORDERA BLE LABS Final Result Performing Organization Address [facility] Phone Number [facility] [address] * HIV 1/2 ANTIGEN/ANTIBODY,FOURTH GENERATION W/RFL (04/25/2021 2:28 PM EDT) HIV-1/2 ANTIGEN AND ANTIBODIES, 4TH GENERATION W/ REFLEX NON-REACT JERROD NON-REACT JERROD [facility] Comment: HIV-1 antigen and HIV-1/HIV-2 [...] ? For additional information please refer to http://education.GeaCom/faq/JSC442 (This link is being provided for informational/ educational purposes only.) ? The performance of this assay has not been clinically validated in patients less than 2 years old. ?? 04/25/2021 2:28 PM EDT us Ariadne Lopez MD LAB BLOOD ORDERABLES Final Result [facility] [address] from Last 3 Months or Most Recently Relevant to Health Maintenance Insurance HSN PARTIAL BCBS PPO Care Teams Railroad Firer Relationship Specialty Start Date End Date Vivienne Schultz MD [address] [place] [address] PCP - General Family Medicine 01/17/21
--- OUTSIDE RECORDS SUMMARY | 2025-03-03 08:05 | XMS_ITS | Encounter Summary ---
Author Organization [employer] Address [address] [facility] [address] 7t [place] [address] Care Team Providers Care Wireless Telegrapher Name Role Phone Vivienne Schultz MD Primary Care Provider [phone] Encounter Details Date Type Department Care Team (Late st Contact Info) Description 05/21/2023 Orders Only [facility] CH[facility] MED & PEDS [address] [place] [address] Bonnie Grande LPN Social History Tobacco Use [...] on filedocumented in this encounter Care Teams Wireless Telegrapher Relationship Specialty Start Date End Date Vivienne Schultz MD [address] [place] [address] PCP - General Family Medicine 01/17/21 documented as of this encounter
--- OUTSIDE RECORDS SUMMARY | 2025-03-03 08:06 | XMS_ITS | Encounter Summary ---
Author Organization [employer] Address [address] [facility] [address] [place] [address] Care Team Providers Care Manager Emergency Department Name Role Phone Vivienne Schultz MD Primary Care Provider [phone] Reason for Visit * Reason Comments Med Refill Encounter Details Date Type Department Care Team ([facility] st Contact Info) Description 11/29/2024 Refill [facility] MEDICINE [address] [place], [place] [phone] Vivienne Schultz MD [address] [place], [place] [phone] Social History Tobacco Use Types Packs/Day Years [...] on filedocumented in this encounter Care Teams Manager Emergency Department Relationship Specialty Start Date End Date Vivienne Schultz MD [address] [place] [address] PCP - General Family Medicine 01/17/21 documented as of this encounter
--- OUTSIDE RECORDS SUMMARY | 2025-03-03 08:06 | XMS_ITS | Patient Health Record ---
Author Organization [facility] Address [address] [place] [address] Care Team Providers Care Linen Grader Name Role Phone Vivienne Schultz M.D. Primary [...] a day for 30 day(s) Active Nystatin 952390 UNIT/GM as directed Exte rnally Twice a [...] Problem Status W/U Status Risk Notes Problem [id number] Colon cancer screening (Z12.11) Active confirmed Problem [id number] Encounter for other preprocedural examination (Z01.818) Active confirmed Plan Of Treatment Future Test Test Name Order Date COLONOSCOPY 11/16/2021 Insurance Providers Payer Name Payer Address Payer Phone Subscriber Number Group Number Insured Name Patient Relationship to Insured Coverage Start Date Coverage End Date [employer] [address] [place] [address] [phone] [id number] JONATHON SALMERON Self - patient is the insured Medical (General) History Medical History History ICD Code prediabetic hypothyroidism hyperlipidemia vitamin D deficiency Nephrolithiasis Gastroesophageal reflux disease Surgical History Surgery Date(Month/Year) kidneystone 2013 tube in right ear 2013 ESWL 2011 Reduction mammoplasty
[2025-03-03 11:44] LABS: Estimated Average Glucose 114 mg/dL; Hemoglobin A1C 138.1312 umol/L; Hemoglobin A1c % 5.6 % (<6.0); Total Hemoglobin (HGBA1C) 3676.1278 umol/L
[2025-03-03 12:14] LABS: Alanine Aminotransferase 18 U/L (0-31); Albumin Level 4.1 g/dL (3.5-5.0); Alkaline Phosphatase 74 U/L (39-117); Anion Gap 12 (12-20); Aspartate Amino Transferase 20 U/L (5-31); Bilirubin Total 0.3 mg/dL (0.0-1.0); Blood Urea Nitrogen 17 mg/dL (9-16); Calcium 9.7 mg/dL (8.4-10.2); Carbon Dioxide 28 mmol/L (22-29); Chloride 106 mmol/L (96-108); Cholesterol 226 mg/dL (<200); Estimated Glomerular Filt Rate > 60; Glucose Random 81 mg/dL (60-115); HDL Cholesterol 59 mg/dL (>40); LDL Cholesterol Calculated 143 mg/dL (<100); Potassium 4.7 mmol/L (3.3-5.1); Sodium 141 mmol/L (135-145); TSH reflex Free T4 0.77 uIU/mL (0.32-4.0); Total Protein 7.6 g/dL (6.5-8.0); Triglycerides 124 mg/dL (<150)
== END 2025-03-03 08:01 | disposition home or self-care (01) ==
LOC: HO.HHCL 08:00
PROVIDERS: Visit Provider General Practice
DX: R73.03 Prediabetes (principal); E03.9 Hypothyroidism, unspecified; E78.49 Other hyperlipidemia
CPT/HCPCS: 36415; 80053; 80061; 83036; 84443

== ENCOUNTER 2025-04-06 12:16 | Outpatient (REF) | payer BC, SELFPAY ==
--- NOTE | ~2025-04-06 | XR_ITS ---
EXAMINATION: XR CERVICAL SPINE CLINICAL INFORMATION: chronic neck pain, left side worse than right COMPARISON: Collated to CT dated June 03, 2022. TECHNIQUE: 3 views of the cervical spine were obtained. FINDINGS: Craniocervical junction is intact. Grade 1 anterolisthesis C3-4. No acute cortical disruption. Well-corticated calcification in the anterior inferior C6. Upper respiratory airways is patent. XR/XR cervical spine 3V IMPRESSION: Mild cervical spondylosis C3-4 and C6-7 with likely grade 1 anterolisthesis C3-4. Electronically signed by: Rosalio Montilla MD 04/06/2025 01:51 PM EDT
--- OUTSIDE RECORDS SUMMARY | 2025-04-06 13:39 | XMS_ITS | Encounter Summary ---
Author Organization [employer] Address [address] [facility] [address] 7[address] [place] [address] Care Team Providers Care American Board Certified Orthotist Name Role Phone Vivienne Schultz MD Primary Care Provider [phone] Encounter Details Date Type Department Care Team (Latest Contact Info) Description 04/06/2025 Travel Social History Tobacco Use Types Packs/Day Years [...] on filedocumented in this encounter Care Teams American Board Certified Orthotist Relationship Specialty Start Date End Date Vivienne Schultz MD [address] [place] [address] PCP - General Family Medicine 01/17/21 documented as of this encounter
--- OUTSIDE RECORDS SUMMARY | 2025-04-06 13:39 | XMS_ITS | Encounter Summary ---
Author Organization [employer] Address [address] [facility] [address] 7[address] [place] [address] Care Team Providers Care Sales Ledger Administrator Name Role Phone Vivienne Schultz MD Primary Care Provider [phone] Encounter Details Date Type Department Care Team (Late st Contact Info) Description 04/06/2025 11:30 AM EDT Office Visit [facility] MEDICINE [address] [place], [place] [phone] Nicolle East MD [address] [place], [place] [phone] Prediabetes (Primary Dx); Hypothyroidism, unspecified type; Neck pain; Chronic midline low back pain, unspecified whether sciatica present Social History Tobacco Use Types Packs/Day Years Used Date Smoking Tobacco: Never Smokeless Tobacco: Never Alcohol Use Standard Drinks/Week Comments Never 0 (1 standard drink = 0.6 oz pur e alcohol) Housing Stability Answer Date Recorded What is your housing situation today? I have bryce kaylyn 09/30/[address] you li [...] t he electric, gas, oil or water [employer] threatened to shut off services in your home? No 09/30/2023 Depression Answer Date Recorded Patient Health Questionnaire-2 Score 0 07/02/2023 Comments No Sex and Gender Information Value Date Recorded Sex Assigned at Female 10/01/2022 10:18 AM EDT Legal Sex Female 10:18 AM EDT Gender Identity Female 10/01/2022 10:18 AM EDT Sexual Orientation Straight 10/01/2022 10 :18 AM EDT documented as of this encounter Last Filed Vital Signs Vital Sign Reading Time Taken Comments Blood Pressure 134/70 04/06/2025 11:56 AM EDT Pulse 100 04/06/2025 11:26 AM EDT Temperature 36.3 ??C (97.3 ??F) 04/06/2025 1 1:26 AM EDT Respiratory Rate 19 04/06/2025 11:2 6 AM EDT Oxygen Saturation 96% 04/06/2025 11: 26 AM EDT Inhaled Oxygen Concentration - - Weight 63.9 kg (140 lb 12.8 oz) 025 11:26 AM EDT Height - - Body Mass Index 31.57 01/04/2025 3:41 PM EST documented in this encounter Miscellaneous Notes * Assessment & Plan Note - Bonnie Muñoz MA - 04/06/2025 12:05 PM EDT Associated Problem(s): Chronic midline low back pain - Likely muscle spasm possible degenerative disc disease - Will try physical therapy. Will prescribe topical diclofenac and muscle relaxant and continue acetaminophen. * Assessment & Plan Note - Bonnie Muñoz MA - 04/06/2025 12:04 PM EDT Associated Problem(s): Neck pain - Likely muscle spasm possible cervical radiculopathy - Will try physical therapy. Will prescribe topical diclofenac and muscle relaxant and continue acetaminophen. documented in this encounter Plan of Treatment Scheduled Orders Name Type Priority Associated Diagnoses Orde r Schedule XR CERVICAL SPINE 3V Imaging Routine Neck pain Expected: 04/06/2025, Expires: 04/06/2026 documented as of this encounter Visit Diagnoses Diagnosis Prediabetes- Primary Other abnormal glucose Hypothyroidism, unspecified type Neck pain Cervicalgia Chronic midline low back pain, unspecified whether sciatica present documented in this encounter Care Teams Sales Ledger Administrator Relationship Specialty Start Date End Date Vivienne Schultz MD [address] [place] [address] PCP - General Family Medicine 01/17/21 documented as of this encounter
--- OUTSIDE RECORDS SUMMARY | 2025-04-06 13:39 | XMS_ITS | Encounter Summary ---
Author Organization [employer] Address [address] [place] [address] Care Team Providers Care Metal Polisher And Buffer Apprentice Name Role Phone Vivienne Schultz MD Primary Care Provider [phone] Reason for Visit * Reason Onset Date Comments Nurse Triage 04/05/2025 Encounter Details Date Type Department Care Team ([facility] st Contact Info) Description 04/05/2025 Telephone [facility] MEDICINE [address] [place], [place] [phone] Vivienne Schultz MD [address] [place] [address] Nurse Triage Social History Tobacco Use Types Packs/Day Years [...] AM EDT documented as of this encounter Miscellaneous Notes * Telephone Encounter - Sylvia West RN - 04/05/2025 5:31 PM EDT [place]riage [place] [id number], Luis Felipe. Pt reports back pain which is new and started 04/04/25. Pt denies injury, overuse. Pt describes doinglaundry and when bending over to hop picker laundry something happened and Pt was unable to stand upstraight. Pt reports the pain comes and goes especially after walking for some time. Pt reports thepain radiates to left side of neck. No radiation of pain to leg or numbness. Pt has taken motrin for some relief. Pt is given ASK apt with Dr. East 04/06/25 @ 1130am. Pt agreed with disposition and insurance is verified as active prior to booking. Protocol Used: Back Pain (Adult) Protocol-Based Disposition: See in Office or Video Visit within 3 Days Video visit not offered Positive Triage Questions: * Moderate back pain (e.g., interferes with normal activities) and present > 3 days * Patient wants to be seen * All higher-acuity triage questions were negative Care Advice Discussed: * Reassurance and Education - Back Pain * Cold or Heat * Sleep * Continue Activity * Pain Medicines * Reasons To Call Back - Fever occurs - Numbness or weakness occurs - Loss of control of your bladder or bowel - Severe pain not better after taking pain medicines - Pain begins to shoot into the leg - Pain lasts over 2 weeks - Pain becomes worse - You become worse * Telephone Encounter - Leonardo Melquiades - 04/05/2025 4:46 PM EDT Symptom: Back Pain - Not From Injury Outcome: Schedule an appointment to be seen within 3 days Reason: Caller denied all higher acuity questions The caller accepted this outcome. Pt stated started after doing laundry last night Ukrainian speaking documented in this encounter Plan of Treatment Not on file documented as of this encounter Visit Diagnoses Not on filedocumented in this encounter Care Teams Metal Polisher And Buffer Apprentice Relationship Specialty Start Date End Date Vivienne Schultz MD [address] [place] [address] PCP - General Family Medicine 01/17/21 documented as of this encounter
--- OUTSIDE RECORDS SUMMARY | 2025-04-06 13:39 | XMS_ITS | Encounter Summary ---
Author Organization [employer] Address [address] [place] [address] Care Team Providers Care Insurance Loss Adjuster Name Role Phone Vivienne Schultz MD Primary Care Provider [phone] Reason for Visit * Reason Comments Med Refill Encounter Details Date Type Department Care Team ([facility] st Contact Info) Description 11/29/2024 Refill [facility] MED[facility]INE [address] [place], [place] [phone] Vivienne Schultz MD [address] [place], [place] [phone] Social History Tobacco Use Types Packs/Day Years [...] on filedocumented in this encounter Care Teams Insurance Loss Adjuster Relationship Specialty Start Date End Date Vivienne Schultz MD [address] [place] [address] PCP - General Family Medicine 01/17/21 documented as of this encounter
--- OUTSIDE RECORDS SUMMARY | 2025-04-06 13:39 | XMS_ITS | Encounter Summary ---
Author Organization [employer] Address [address] [address] [facility] [address] [place] [address] Care Team Providers Care Punchboard Assembler Name Role Phone Vivienne Schultz MD Primary Care Provider [phone] Encounter Details Date Type Department Care Team (Late st Contact Info) Description 05/21/2023 Orders Only [facility] CH[facility] MED & PEDS [address] [place] [address] Bonnie Grande LPN Social History Tobacco Use [...] on filedocumented in this encounter Care Teams Punchboard Assembler Relationship Specialty Start Date End Date Vivienne Schultz MD [address] [place] [address] PCP - General Family Medicine 01/17/21 documented as of this encounter
--- OUTSIDE RECORDS SUMMARY | 2025-04-06 13:39 | XMS_ITS | Clinical Summary ---
Author Organization [employer] Address [address] [place] [address] Care Team Providers Care Program Rep Name Role Phone Vivienne Schultz MD Primary Care Provider [phone] Allergies Active Allergy Reactions Criticality Noted Date [...] replace cap. 16 mL 3 5 Active Diclofenac Sodium 1 % gel Apply to affected area once daily 150 g 3 5 Active cyclobenzaprine (Flexeril) 5 MG tablet Take 1 or 2 tablets by mouth at bedtime 60 tablet 1 5 Active acetaminophen (Tylenol 8 Hour) 650 MG ER tablet Take 1 tablet (650 mg) by mouth every 8 (eight) hours if needed for mild pain or moderate pain. Do not crush, chew, or split. 50 tablet 1 Active Active Problems Problem Noted Date Diagnosed Date Neck pain 04/06/2025 Assessment & Plan (04/06/2025 12:04 PM EDT): - Likely muscle spasm possible cervical radiculopathy - Will try physical therapy. Will prescribe topical diclofenac and muscle relaxant and continue acetaminophen. Chronic midline low back pain 04/06/2025 Assessment & Plan (04/06/2025 12:05 PM EDT): - Likely muscle spasm possible degenerative disc disease - Will try physical therapy. Will prescribe topical diclofenac and muscle relaxant and continue acetaminophen. Bloody nose 09/09/2024 History of frequent ear [...] activity. Check home BP BIW and prn CP/BRIESNO/GREGORY Non smoking patient. Normal colonoscopy 12/13/2021 Vitamin D deficiency 11/07/2016 Prediabetes 11/07/2016 Hypothyroidism 02/09/2016 Hyperlipidemia 02/09/2016 Resolved Problems Problem Noted Date Diagnosed Date Resolved Date Streptococcal sore throat 03/03/2018 Encounters Date Type Department Care Team Description 04/06/2025 11:30 AM EDT Office Visit [facility] [address] [place] [address] Nicolle Eats MD Prediabetes (Primary Dx); Hypothyroidism, unspecified type; Neck pain; Chronic midline low back pain, unspecified whether sciatica present 04/06/2025 Travel 04/05/2025 Telephone [facility] [address] [place], [place] [phone] Vivienne Schultz MD Nurse Triage 02/05/2025 Orders Only [facility] [address] [place] [phone] Vivienne Schultz MD from Last 3 Months Immunizations Name Administration [...] your housing situation today? I have bryce sing 09/30/[address] you li [...] 12.8 oz) 025 11:26 AM EDT Height 142.2 cm (4' 8 ) 01/04/2025 3:41 PM EST Body Mass Index 31.57 01/04/2025 3:41 PM EST Plan of Treatment [...] 05/15/2021, 04/17/2021 Alcohol/Substance Use Screening 01/04/2026 01/04/2025 Mammogram 02/05/2026 02/05/2025, 01/03, 01/25/2023, Additional history exists Diabetes: Hemoglobin A1C 03/03/2026 025, 01/04/2025, 08/02/2023, Additional history exists Tobacco Screening 04/06/2026 04/06/2025 Cervical Cancer Screening 07/18/2026 HPV/Cotest 07/18/2026 07/18/2021, [...] Procedure Name Priority Date/Time Associated Diagnosis Comments LIPID PANEL, STANDARD Routine 03/03/2025 8:03 AM EDT Other hyperlipidemia TSH W/REFLEX TO FT4 Routine 03/03/2025 8 :03 AM EDT Hypothyroidism, unspecified type COMPREHENSIVE METABOLIC PANEL Routine 03/03/2025 8:03 AM EDT Prediabetes HEMOGLOBIN A1C Routine 03/03/2025 8:03 AM EDT Prediabetes BI MAMMOGRAM SCREENING TOMOSYNTHESIS BILATERAL Routine 02/05/2025 2:50 PM EST HPV MRNA E6/E7 REFLEX TO HPV 16, 18/45 Routine 07/18/2021 8:41 PM EDT THINPREP PAP Routine 07/18/2021 8:41 PM EDT ZZZ HISTORICAL HEPATITIS C AB W/REFL TO HCV RNA, QN, PCR Routine 04/25/2021 2:28 PM EDT HIV 1/2 ANTIGEN/ANTIBODY, FOURTH GENERATION W/RFL Routine 04/25/2021 2:28 PM EDT from Last 3 Months or Most Recently Relevant to Health Maintenance Results * TSH W/Reflex to FT4 (03/03/2025 8:03 AM EDT) TSH reflex Free T4 0.77 0.32 - 4.0 uIU/mL [facility] Blood Venous blood specimen / Unknown 03/03/2025 8:03 AM EDT 03/03/2025 11:25 AM EDT us Vivienne Schultz MD LAB BLOOD ORDERABLES Final Res ult Performing Organization Address [facility] [address]/ZIP Co de Phone Number [facility] [address] [place] [address] [phone] * Hemoglobin A1c (03/03/2025 8:03 AM EDT) Hemoglobin A1c 5.6 <6.0 % [facility] Comment:Hemoglobin A1C Refer ence Range Adults: 4.8 - 6.0 % Non diabetic: < 6.0 % Goal: < 7.0 %Additional Action Suggested: > 8.0 %Note: Hemoglobin A1c results are invalid for patients with abnormal amounts of HbF. Blood transfusions may impact the HbA1c concentration in the patient sample. Estimated Average Glucose 114 mg/dL [facility] Comment:eAG = Estimated ave rage glucose which is %A1C expressed asaverage glucose, using the formula of the [id number] Glucose study (ADAG), Diabetes Care, Vol.31,#8,2007 Blood Venous blood specimen / Unknown 03/03/2025 8:03 AM EDT 03/03/2025 11:25 AM EDT us Vivienne Schultz MD LAB BLOOD ORDERABLES Final Res ult Performing Organization Address [facility] [address]/[facility] Co de Phone Number [facility] [address] [place] [phone] * (ABNORMAL) Lipid Panel, Standard (03/03/2025 8:03 AM EDT) Triglycerides 124 <150 mg/dL [facility] Comment:Desirable Triglyceri de: less than 150 mg/dLBorderline High Triglyceride 150-199 mg/dLHigh Triglyceride: 200-499 mg/dLVery High Triglyceride: greater than or equal to 5OO mg/dL Cholesterol 226(H) <200 mg/dL [facility] Comment:Desirable Cholestero l: less than 200 mg/dLBorderline High Cholesterol: 200-239 mg/dLHigh Cholesterol: greater than 239 mg/dL LDL Cholesterol Calculated 143(H) <100 mg/dL [facility] Comment:Desirable LDL: less than 100 mg/dLNear Optimal/Above Optimal LDL: 110- 129 mg/dLBorderline High LDL: 130-159 mg/dLHigh LDL: 160-189 mg/dLVery High LDL: greater than or equal to 190 mg/dL HDL Cholesterol 59 >40 mg/dL [facility] Comment:Desirable HDL: great er than 40 mg/dL Note: This HDL assay may give artificially low results in patients with liver disease. Blood Venous blood specimen / Unknown 03/03/2025 8:03 AM EDT 03/03/2025 11:25 AM EDT us Vviienne Schultz MD LAB BLOOD ORDERABLES Final Res ult [facility] [address] [place] [phone] * (ABNORMAL) Comprehensive Metabolic Panel (03/03/2025 8:03 AM EDT) Sodium 141 135 - 145 mmol/L [facility] Potassium 4.7 3.3 - 5.1 mmol/L [facility] Chloride 106 96 - 108 mmol/L [facility] Carbon Dioxide 28 22 - 29 mmol/L [facility] Anion Gap 12 12 - 20 [facility] Urea Nitrogen (BUN) 17(H) 9 - 16 mg/dL [facility] Creatinine, Serum 0.71 0.5 - 1.4 mg/dL [facility] Estimated Glomerular Filt Rate >60 [facility] Comment:Chronic Kidney Disea se: Estimated GFR < 60 mL/min/1.63n7Ksnhii Kidney Disease: Estimated GFR < 15 mL/min/1.73m2 Glucose 81 60 - 115 mg/dL [facility] Calcium 9.7 8.4 - 10.2 mg/dL [facility] Bilirubin, Total 0.3 0.0 - 1.0 mg/dL [facility] Aspartate Amino Transferase 20 5 - 31 U/L [facility] Alanine Aminotransferase 18 0 - 31 U/L [facility] Total Protein 7.6 6.5 - 8.0 g/dL [facility] Albumin Level 4.1 3.5 - 5.0 g/dL [facility] Alkaline Phosphatase 74 39 - 117 U/L [facility] Blood Venous blood specimen / Unknown 03/03/2025 8:03 AM EDT 03/03/2025 11:25 AM EDT us Vivienne Schultz MD LAB BLOOD ORDERABLES Final Res ult [facility] [address] [place] [address] [phone] * BI Mammogram Screening Tomosynthesis Bilateral (02/05/2025 2:50 PM EST) Anatomical Region Laterality Modality Breast Bilateral Mammography 02/05/2025 2:50 PM EST Narrative 02/14/2025 7:58 PM EDT ? [facility] [place] ? [address] ?[place] [address] ? Mammography Report ? Signed ? Patient: Lexis Kim ?MR#: [id number] ?? 214 ? : 1960 ?Acct:[id number] ? Age/Sex: 64 / F ?ADM Date: //25 ? Loc: HO.MAMMO ? Attending Dr: Vivienne Schultz MD ? Ordering Physician: Vivienne Schultz ?Results: 2Benign F ?? indings ? Date of Service: 02/05/ ?Follow Up: 1 Year From Orig ?? inal Mammogram ? Procedure(s): MM tomosynthesis screening BI ?? Accession Number(s): [id number] ? cc: Vivienne Schultz ? EXAMINATION: ?? [...] DD/ 1450 ? TD/TT: 02/05/25 1500 ? Cook Helper Dessert: ? Procedure Note Sin Reddy - 02/14/2025 [facility] [address] [place] [address] Mammography Report Signed Patient: Mary KimAdina#: [id number] : 1960Acct:[id number] Age/Sex: 64 / FADM Date: 02/05/25 Loc: HO.MAMMO Attending Dr: Vivienne Schultz MD Ordering Physician: Osvaldo Schultzults: 2Bjuan j mesa Date of Service: 02/05/25Follow Up: 1 Year From Orig ina Mammogram Procedure(s): MM tomosynthesis screening BI Accession Number(s): [id number] cc: Vivienne Schultz EXAMINATION: MM SCREENING DIGITAL [...] signed by Guera Juares DO in OV> 02/14/251954 DD/ 1450 TD/TT: 02/05/25 1500 Cook Helper Dessert: us Vivienne Schultz MD IMG BI PROCEDURES Final Result * THINPREP PAP (07/18/2021 8:41 PM EDT) Clinical Information: None given [facility] COMMENT SEE COMMENT [facility] [...] historic and ?? current clinical information. ?? Implementation Coordinator : SEE COMMENT [facility] Comment: RMM, CT(ASCP) CT screening location: [address] ??[address] Interpretation/R esult: Negative for intraepithelial lesion or malignancy. [facility] LMP: NONE GIVEN [facility] Prev. BX: NONE [facility]IVEN [facility] Prev. PAP: NONE GIVEN [facility] SOURCE: None given [facility] Statement Of Adequacy: SEE COMMENT [facility] Comment: Satisfactory for evaluation. Endocervical/transformation zone component present. 07/18/2021 8:41 PM EDT Vivienne Schultz MD LAB PATHOLOGY ORDERABLES Final Result [facility] [address] * HPV mRNA E6/E7 REFLEX TO HPV 16, 18/45 (07/18/2021 8:41 PM EDT) HPV nRNA E6/E7 Not Detected Not Detected [facility] Comment: Methodology: Archivist Economic History-Mediated Amplification This assay detects E6/E7 viral messenger RNA (mRNA) from 14 high-risk HPV types (16,18,31,33,35,39,45,51,52,56,58,59,66,68). ? The analytical performance characteristics of this assay have been determined by [employer]. The modifications have not been cleared or approved by the FDA. This assay has been validated pursuant to the CLIA regulations and is used for clinical purposes. ?? For additional information, please refer to http://education.[employer].com/faq/XBD542e3 (This link if provided for information/ educational purposes only.) NO COLLECTION DATE RECEIVED. WE HAVE USED THE DATE THE SPECIMEN WAS RECEIVED BY THIS LABORATORY THE COLLECTION DATE. IF THIS IS INCORRECT, PLEASE CONTACT CLIENT SERVICES. PHONE NUMBER: ?? 07/18/2021 8:41 PM EDT Vivienne Schultz MD LAB CYTOLOGY ORDERABLES Final Result Performing Organization Address [facility] [address]/[facility] Co de Phone Number [facility] [address] [place] [address], * HEPATITIS C AB W/REFL TO HCV RNA, QN, PCR (04/25/2021 2:28 PM EDT) HEPATITIS C ANTIBODY NON-REACT JERROD NON-REACT JERROD [facility] INDEX 0.01 <1.00 [facility] Comment: ?? HCV antibody was non-reactive. There is no laboratory ?? evidence of HCV infection. ?? In most cases, no further action is required. However, if recent HCV exposure is suspected, a test for HCV RNA (test code 23639) is suggested. ?? For additional information please refer to http://[employer]/faq/XBW12m3 (This link is being provided for informational/ educational purposes only.) ?? 04/25/2021 2:28 PM EDT Ariadne Lopez MD HISTORICAL/NON ORDERA BLE LABS Final Result Performing Organization Address [facility] [address]/[facility] de Phone Number [facility] [address] * HIV 1/2 ANTIGEN/ANTIBODY,FOURTH GENERATION W/RFL (04/25/2021 2:28 PM EDT) HIV-1/2 ANTIGEN AND ANTIBODIES, 4TH GENERATION W/ REFLEX NON-REACT JERROD NON-REACT JERROD [facility] Comment: HIV-1 antigen and HIV-1/HIV-2 [...] ? For additional information please refer to http://education.[employer]/faq/DGE784 (This link is being provided for informational/ educational purposes only.) ? The performance of this assay has not been clinically validated in patients less than 2 years old. ?? 04/25/2021 2:28 PM EDT Ariadne Lopez MD LAB BLOOD ORDERABLES Final Result [facility] Critical access hospital [address] from Last 3 Months or Most Recently Relevant to Health Maintenance Insurance [employer] [facility] [facility] PPO Care Teams Program Rep Relationship Specialty Start Date End Date Vivienne Schultz MD [address] [place] [address] PCP - General Family Medicine 01/17/21
--- OUTSIDE RECORDS SUMMARY | 2025-04-06 13:39 | XMS_ITS | Encounter Summary ---
Author Organization [employer] Address [address] [place] [address] Care Team Providers Care Cdl Bulk Driver Name Role Phone Vivienne Schultz MD Primary Care Provider [phone] Encounter Details Date Type Department Care Team (Late st Contact Info) Description 03/12/2023 Orders Only [facility] [address] [place] [address] Bonnie Grande LPN Social History Tobacco Use [...] on filedocumented in this encounter Care Teams Cdl Bulk Driver Relationship Specialty Start Date End Date Vivienne Schultz MD [address] [place] [phone] PCP - General Family Medicine 01/17/21 documented as of this encounter
--- OUTSIDE RECORDS SUMMARY | 2025-04-06 13:39 | XMS_ITS | Patient Health Record ---
Author Organization [facility] Address [address] [place] [address] Care Team Providers Care Fingerer Name Role Phone Vivienne Schultz M.D. Primary Care Provider Favian Cowan Jr Unavailable [phone] Reason For Referral No Information Medications Medication SIG (Take, Route, Frequency, Duration) Notes Start Date End Date Status Atorvastatin Calcium 40 MG 1 tablet Oral ly Once a day for 30 day(s) Active Pepcid 20 MG 1 tablet at bedtime as needed Orally Once a day for 30 day(s) Active Nystatin 100363 UNIT/GM as directed Exte rnally Twice a [...] Problem Status W/U Status Risk Notes Problem 399035378 Colon cancer screening (Z12.11) Active confirmed Problem 744750322 Encounter for other preprocedural examination (Z01.818) Active confirmed Plan Of Treatment Future Test Test Name Order Date COLONOSCOPY 11/16/2021 Insurance Providers Payer Name Payer Address Payer Phone Subscriber Number Group Number Insured Name Patient Relationship to Insured Coverage Start Date Coverage End Date [employer] [address] [place] [address] [phone] [id number] JONATHON SALMERON Self - patient is the insured Medical (General) History Medical History History ICD Code prediabetic hypothyroidism hyperlipidemia vitamin D deficiency Nephrolithiasis Gastroesophageal reflux disease Surgical History Surgery Date(Month/Year) kidneystone 2013 tube in right ear 2013 ESWL 2011 Reduction mammoplasty
--- OUTSIDE RECORDS SUMMARY | 2025-04-06 13:39 | XMS_ITS | Encounter Summary ---
Author Organization [employer] Address [address] [place] [address] Care Team Providers Care Straightening Machine Operator Name Role Phone Vivienne Schultz MD Primary Care Provider [phone] Encounter Details Date Type Department Care Team (Late st Contact Info) Description 08/14/2023 Orders Only [facility] [address] [place], [place] [phone] Vivienne Schultz MD [address] [place], [place] [phone] Social History Tobacco Use Types Packs/Day Years [...] on filedocumented in this encounter Care Teams Straightening Machine Operator Relationship Specialty Start Date End Date Vivienne Schultz MD [address] [place] [phone] PCP - General Family Medicine 01/17/21 documented as of this encounter
== END 2025-04-06 12:17 | disposition home or self-care (01) ==
LOC: HO.HHCX 12:16
PROVIDERS: Visit Provider Family Medicine
DX: M54.2 Cervicalgia (principal)
CPT/HCPCS: 72040

== ENCOUNTER → 2025-04-06 12:16 | Outpatient (BNV) | payer BC, SELFPAY | PROVIDERS: Visit Provider Radiology Diagnostic Radiology | DX: M54.2 Cervicalgia (principal) | CPT/HCPCS: 72040 ==